=== PATIENT | female | born 1940 | race Caucasian/White ===

== ENCOUNTER 2017-07-28 17:19 | Inpatient (IN) | payer OTHER ==
[~2017-07-28] VITALS: Ht 160 cm; Wt 72.6 kg
--- NOTE | ~2017-07-28 | EKG ---
[place] [address] [facility] [place] [address] ELECTROCARDIOGRAM REPORT Name: TERE SILVA Room #: 170-3 ADM IN M.R.#: [id number] Admission: 07/28/17 Attend Phys: Rocky Cabrera MD Discharge: Date of : 40 Report #: [id number] THIS REPORT FOR: //name// [facility] ED Test Date: 2017-07-28 Test Time: 18:08:21 Pat Name: TERE SILVA Department: Room: 170 Gender: F Environmental Compliance Specialist: shan : 1940 Requested By: Marcela Berrios Order Number: [id number] MD: Mehdi Ramey Measurements Intervals [place] Rate: 79 P: DE: QRS: -51 QRSD: 152 T: 99 QT: 416 QTc: 477 Interpretive Statements Sinus rhythm with first-degree AV block Left bundle branch block No previous ECG available for comparison Electronically Signed On 07-29-2017 8:01:17 FOOD PRODUCT INSPECTOR by Mehdi Ramey [email or web address] <ELECTRONICALLY SIGNED> By: Mehdi Ramey MD, [facility] 07/29/17 0801 07 07 Mehdi Ramey MD, [facility] /EPI
--- NOTE | ~2017-07-28 | 2DMMODE ---
[facility] [address] [place] [address] 2 D/M-MODE ECHOCARDIOGRAM Name: TERE SILVA Room #: 170-3 ADM IN ..#: [id number] Admission: 07/28/17 Attend Phys: Rocky Cabrera, Discharge: Date of : 40 Date of Service: 07/29/17 1011 Report #: [id number] THIS REPORT FOR: //name// APPROVED REPORT Study performed: 07/29/2017 08:23:04 EXAM: Comprehensive 2D, Doppler, and color-flow Echocardiogram Patient Location: ER Room #: 3 Status: routine BSA: 1.66 HR: 89 bpm BP: 147/75 mmHg Other Information Study Quality: Adequate Indications Congestive Heart Failure Diabetes Hypertension/HDD 2D Dimensions RVDd: 32.84 mm LVEF(%): 29.83 (>50%) IVSd: 10.26 (7-11mm) LVOT Diam: 19.68 (18-24mm) LVDd: 53.58 mm PWd: 10.82 (7-11mm) Ascending Ao: 26.63 (22-36mm) LVDs: 46.01 (25-40mm) Aortic Root: 26.07 mm IVC: 22.00 mm Sanchez's LVEF: 29.83 % Volumes Left Atrial Volume (Systole) Single Plane 4CH: 41.98 mL Single Plane 2CH: 39.76 mL LA ESV Index: 31.00 mL/m2 Aortic Valve AoV Peak Cristiano.: 1.28 m/s AO Peak Gr.: 6.54 mmHg LVOT Max P.58 mmHg LVOT Max V: 0.95 m/s GERONIMO Vmax: 2.25 cm2 Mitral Valve E/A Ratio: 0.8 [facility] [address] [place] [address] 2 D/M-MODE ECHOCARDIOGRAM Name: SHIRATEREDandy PAULSON Room #: [facility]3 ADM IN M.R.#: [id number] Admission: 07/28/17 Attend Phys: Rocky Cabrera, Discharge: Date of : 40 Date of Service: 07/29/17 1011 Report #: [id number] MV Decel. Time: 174.00 ms MV E Max Cristiano.: 0.97 m/s MV A Cristiano.: 1.27 m/s MV PHT: 50.46 ms IVRT: 152.25 ms Pulmonary Valve PV Peak Cristiano.: 1.05 m/s PV Peak Gr.: 4.39 mmHg TX End Vmax: 2.03 m/s Pulmonary Vein P Vein S: 0.55 m/s P Vein A: 0.25 m/s P Vein D: 0.45 m/s P Vein A Dur.: 101.5 msec P Vein S/D Ratio: 1.22 Tricuspid Valve TR Peak Cristiano.: 3.94 m/s TR Peak Gr.: 62.03 mmHg PA Pressure: 72.00 mmHg Left Ventricle The left ventricle is normal size. There is global hypokinesis of the left ventricle. There is normal left ventricular wall thickness. Left ventricular ejection fraction is moderate to severely decreased. LVEF is 25-30%. Grade I - abnormal relaxation pattern. Right Ventricle The right ventricle is normal size. The right ventricular systolic function is normal. Atria The left atrium size is normal. Right atrium is at the upper limits of normal. Aortic Valve The aortic valve is normal in structure. No aortic regurgitation is present. There is no aortic valvular stenosis. Mitral Valve The mitral valve is normal in structure. Trace to mild mitral regurgitation.. No evidence of mitral valve stenosis. Tricuspid Valve The tricuspid valve is normal in structure. There is mild tricuspid regurgitation. Estimated PAP 72 mmHg. There [place] [address] 2 D/M-MODE ECHOCARDIOGRAM Name: TERE SILVA Room #: [address] [place] [address] [facility]#: [id number] Admission: 07/28/17 Attend Phys: Rocky Cabrera, Discharge: Date of : 40 Date of Service: 07/29/17 1011 Report #: [id number] Pulmonic Valve The pulmonary valve is normal in structure. Mild pulmonic regurgitation. Great Vessels The aortic root is normal in size. IVC is dilated and collapses <50% with inspiration. Pericardium There is no pericardial effusion. <Conclusion> The left ventricle is normal size. There is global hypokinesis of the left ventricle. LVEF is 25-30%. The aortic valve is normal in structure. The mitral valve is normal in structure. Trace to mild mitral regurgitation.. The tricuspid valve is normal in structure. There is mild tricuspid regurgitation. Estimated PAP 72 mmHg. There is severe pulmonary hypertension. The pulmonary valve is normal in structure. Mild pulmonic regurgitation. There is no pericardial effusion. <ELECTRONICALLY SIGNED> By: Forrest Bryson MD 07/29/17 1011 1011 1011 Forrest Bryson MD /INF
--- NOTE | ~2017-07-28 | HC ---
[facility] [place] [address] CONSULTATION Name: TERE SILVA Room #: 402-P ADM IN M.R.#: [id number] Admission: 07/28/17 Attend Phys: Rocky Cabrera MD Discharge: Date of : 40 Report #: [id number] THIS REPORT FOR: //name// CC: [facility] physician/PCP Rocky Cabrera DATE OF SERVICE: 07/31/2017 PRIMARY CARE PHYSICIAN: Unknown. REFERRAL PHYSICIAN: Dr. Cabrera. REASON FOR REFERRAL: Pulmonary nodules. HISTORY OF PRESENT ILLNESS: The patient is a 76-year-old white female who was admitted on 07/28/2017 for uncontrolled hypertension. In the process, the patient had a CT chest, which shows small lung nodules. A pulmonary consultation was requested. The patient states that she has never smoked in her life. 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 She understands that some of the beauticians in the industry do develop lung nodules. Since admission, she feels well. She has been treated for heart failure along with blood pressure control. She is felt to have hypertensive cardiomyopathy with ejection fraction of approximately 30%. Otherwise, denies any fever, night sweats or chills, chest pain, productive cough. CT chest performed on 07/28/2017 shows multiple subpleural small nodules in the right lower lobe, left lower lobe with some evidence of pleural thickening. No other abnormalities were noted. PAST MEDICAL HISTORY: Notable for hypertension, hypothyroidism, early onset diabetes. 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 ALLERGIES: None to medications. HOME MEDICATIONS: Include Lipitor, Darvon. FAMILY HISTORY: Noncontributory. [facility] [place] [address] CONSULTATION Name: TERE SILVA Room #: 402-P [facility] IN .R.#: [id number] Admission: 07/28/17 Attend Phys: Rocky Cabrera MD Discharge: Date of : 40 Report #: [id number] SOCIAL HISTORY: She has never smoked, does not drink. She is retired. 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 REVIEW OF SYSTEMS: As mentioned above, otherwise 10-point system review negative. PHYSICAL EXAMINATION: GENERAL: She is awake, alert, in no apparent distress. VITAL SIGNS: Temperature is 98.6 degrees Fahrenheit, pulse is 67, respiratory rate is 16, blood pressure 150/77 mmHg, saturation is 99%. HEENT: Normocephalic, atraumatic. NECK: Supple, without any lymphadenopathy or thyromegaly. CHEST: Breath sounds are good bilaterally, without any rales or wheezes. CARDIOVASCULAR: Normal S1, S2. There are no murmurs or gallop. There is no JVD. There is no carotid bruit. Pulses are 2+/4+ bilaterally. ABDOMEN: Soft, nontender, no organomegaly or masses felt. GENITOURINARY: Deferred. RECTAL: Deferred. EXTREMITIES: There is no edema, cyanosis or clubbing. LABORATORY DATA: CT chest as mentioned above. CT abdomen and pelvis revealed mild sigmoid diverticulosis, mild left-sided hydronephrosis and hydroureter without obstruction. Echocardiogram showed ejection fraction 25-30%, global hypokinesis, pulmonary artery pressure measuring 72 mmHg, the aortic and mitral valve was unremarkable. Sodium 126, potassium 3.6, chloride 90, CO2 is 30, BUN is 12, creatinine is normal. The liver enzymes are normal. WBC 7500, hemoglobin is 13.2, platelets are normal. IMPRESSION: 1. Small multiple lung nodules in this 76-year-old white female. CT chest shows supple nodules, particularly in the right lower lobe and lesser degree in the left lower lobe with mild pleural thickening. Etiology likely related to granulomatous process, possibly related to occupational exposure. Note, the patient has never smoked. Please see comments below. 2. Hypertensive urgency. 3. Cardiomyopathy, felt to be hypertensive. 4. Elevated pulmonary artery pressure, most likely related to cardiomyopathy. 5. Hyponatremia. I do not suspect this is related to pulmonary process, workup ongoing per primary team. 5. Hypothyroidism. RECOMMENDATION AND DISCUSSION: The small pulmonary nodule seen on CT chest will require followup. I do not think it is actively causing current problems. She [address] [place] [address] CONSULTATION Name: TERE SILVA Room #: 402-P ADM IN M.R.#: [id number] Admission: 07/28/17 Attend Phys: Rocky Cabrera MD Discharge: Date of : 40 Report #: [id number] would need a followup CT chest in about 4-6 months to show stability. This may be related to occupational exposure, though it is uncertain at this time. In terms of elevated pulmonary artery pressures, it is likely related to cardiomyopathy. She would need followup measurements of pulmonary artery pressures. If the pulmonary artery pressure worsens, she also would benefit from outpatient followup. She may benefit from outpatient followup regarding her pulmonary hypertension. She may need a formal workup. Thank you for this consultation. <ELECTRONICALLY SIGNED> By: Tonny Hernandez MD 08/01/17 1345 1413 0113 Tonny Hernandez MD /nt
[2017-07-28 17:20] VITALS: BP 184/111
[2017-07-28 18:24] LABS: ABSOLUTE NEUTROPHILS 8.7 thou/uL (1.4-8.2); BASOPHILS 0.6 % (0.0-2.0); EOSINOPHILS 2.7 % (0.0-3.0); HEMATOCRIT 36.1 % (37.0-47.0); HEMOGLOBIN 12.1 gm/dL (12.0-15.0); LYMPHOCYTES 7.6 % (24.0-44.0); MCH 30.3 pg (26.0-34.0); MCHC 33.6 g/dL (28.0-37.0); MCV 90.1 fL (80.0-100.0); MONOCYTES 10.3 % (1.0-8.0); PLATELET COUNT 162 thou/uL (150-400); POLYS 78.8 % (36.0-66.0); RBC 4.01 mil/uL (4.20-5.00); RDW 13.5 % (10.5-14.5)
[2017-07-28 18:29] LABS: ANION GAP 7 mmol/L (7-16); BUN 12 mg/dL (7-18); CALCIUM 8.2 mg/dL (8.5-10.1); CHLORIDE 92 mmol/L (98-107); CO2 26 mmol/L (21-32); CREATININE 0.9 mg/dL (0.6-1.0); GLUCOSE 165 mg/dL (74-106); POTASSIUM 4.4 mmol/L (3.5-5.1); SODIUM 125 mmol/L (136-145)
[2017-07-28 18:37] LABS: ALBUMIN 2.7 g/dL (3.4-5.0); SGOT 31 U/L (15-37); SGPT 34 U/L (30-65); TOTAL BILIRUBIN 0.7 mg/dL (<0.1-1.0); TOTAL PROTEIN 5.5 g/dL (6.4-8.2); TROPONIN-I < 0.04 ng/mL (<0.06)
[2017-07-28 19:17] LABS: URINE BILIRUBIN NEGATIVE (Negative); URINE BLOOD TRACE (Negative); URINE CLARITY CLEAR; URINE COLOR YELLOW; URINE GLUCOSE-RANDOM* NEGATIVE (Negative); URINE KETONES NEGATIVE (Negative); URINE LEUKOCYTES NEGATIVE (Negative); URINE NITRITE NEGATIVE (Negative); URINE PROTEIN (DIPSTICK) TRACE (Negative); URINE SPECIFIC GRAVITY <= 1.005 (1.005-1.035); URINE UROBILINOGEN 0.2 E.U./dl (0.2-1.0)
[2017-07-28 19:52] VITALS: BP 169/94
[2017-07-28 23:59] VITALS: BP 164/90
[2017-07-29 05:14] LABS: ANION GAP 7 mmol/L (7-16); BUN 8 mg/dL (7-18); CALCIUM 8.4 mg/dL (8.5-10.1); CHLORIDE 92 mmol/L (98-107); CHOLESTEROL 111 mg/dL (<200); CO2 27 mmol/L (21-32); CREATININE 0.8 mg/dL (0.6-1.0); GLUCOSE 135 mg/dL (74-106); HDL CHOLESTEROL 57 mg/dL (>40); LDL CHOLESTEROL 45 mg/dL (<100); SODIUM 126 mmol/L (136-145); TC:HDL 1.9 Ratio (Not establshd); TRIGLYCERIDE 46 mg/dL (<150); VLDL 9 mg/dL (<40)
[2017-07-29 05:26] LABS: SERUM ASSESSMENT Clear
[2017-07-29 13:40] VITALS: BP 154/78
[2017-07-29 14:01] VITALS: BP 162/85
[2017-07-29 14:25] VITALS: BP 159/90
[2017-07-29 15:06] LABS: GLYCOHEMOGLOBIN (HGB A1C) 6.4 % (4.8-5.6)
[2017-07-29] MEDS ORDERED: LIPITOR 20 MG T20 M1 PO (15:25)
[2017-07-29] MEDS ORDERED: DIOVAN 80 MG TA80 M1 PO (15:26)
[2017-07-29 20:00] VITALS: BP 134/85
[2017-07-30 04:00] VITALS: BP 155/93
[2017-07-30 06:52] LABS: HEMOGLOBIN 13.2 gm/dL (12.0-15.0); MCH 29.8 pg (26.0-34.0); MCV 90.3 fL (80.0-100.0); PLATELET COUNT 157 thou/uL (150-400); RBC 4.44 mil/uL (4.20-5.00); RDW 13.7 % (10.5-14.5); WBC 7.5 thou/uL (4.0-11.0)
[2017-07-30 07:02] LABS: CALCIUM 8.6 mg/dL (8.5-10.1); CREATININE 0.8 mg/dL (0.6-1.0); POTASSIUM 3.9 mmol/L (3.5-5.1)
[2017-07-30 07:40] LABS: ABSOLUTE NEUTROPHILS 5.7 thou/uL (1.4-8.2)
[2017-07-30 08:38] VITALS: BP 178/97
[2017-07-30 16:25] VITALS: BP 152/94
[2017-07-30 20:00] VITALS: BP 124/62
[2017-07-31 03:55] LABS: CALCIUM 7.9 mg/dL (8.5-10.1); CREATININE 0.8 mg/dL (0.6-1.0); POTASSIUM 3.6 mmol/L (3.5-5.1)
[2017-07-31 04:00] VITALS: BP 146/82
[2017-07-31 07:33] VITALS: BP 149/77
[2017-07-31 17:00] VITALS: BP 118/78
[2017-07-31 19:44] VITALS: BP 117/62
[2017-08-01 04:00] VITALS: BP 128/83
[2017-08-01 04:47] LABS: CREATININE 0.7 mg/dL (0.6-1.0); POTASSIUM 4.1 mmol/L (3.5-5.1)
[2017-08-01] MEDS ORDERED: COZAAR100 MG PO (08:34)
[2017-08-01] MEDS ORDERED: KLOR-CON M2020 MEQ PO (08:34)
[2017-08-01] MEDS ORDERED: CARVEDILOL25 MG PO (08:34)
[2017-08-01] MEDS ORDERED: LASIX 20 MG TAB20 MG PO (08:34)
[2017-08-01 08:49] VITALS: BP 136/75
[2017-08-01 10:34] VITALS: BP 136/75
[2017-08-01 18:01] VITALS: BP 111/74
== END 2017-08-01 18:10 | disposition home health service (06) | DRG 291 ==
LOC: ER 17:19 → EROBS 19:30 → 4N 19:30
PROVIDERS: Hospitalist; Internal Medicine; Nurse Practitioner Acute Care; Nurse Practitioner Family
DX: I11.0 Hypertensive heart disease with heart failure (principal); E43 Unspecified severe protein-calorie malnutrition; E87.1 Hypo-osmolality and hyponatremia; R18.8 Other ascites; I50.23 Acute on chronic systolic (congestive) heart failure; I42.9 Cardiomyopathy, unspecified; I16.0 Hypertensive urgency; R91.1 Solitary pulmonary nodule; E03.9 Hypothyroidism, unspecified; E78.5 Hyperlipidemia, unspecified; E11.9 Type 2 diabetes mellitus without complications; H54.8 Legal blindness, as defined in USA; E78.00 Pure hypercholesterolemia, unspecified; Z79.899 Other long term (current) drug therapy; Z90.49 Acquired absence of other specified parts of digestive tract
CPT/HCPCS: 10091

== ENCOUNTER 2017-08-16 12:14 | Emergency (ER) | payer OTHER ==
[~2017-08-16] VITALS: Ht 162.6 cm; Wt 68.0 kg
--- NOTE | ~2017-08-16 | EKG ---
[facility] [place] [address] ELECTROCARDIOGRAM REPORT Name: TERE SILVA [facility] [id number] Admission: 08/16/17 Attend Phys: Discharge: Date of : 40 Report #: [id number] THIS REPORT FOR: //name// [facility] ED Test Date: 2017-08-16 Test Time: 12:53:30 Pat Name: TERE SILVA Department: Room: Gender: F Weaver Hand Loom: MARQUITA : 1940 Requested By: Marcela Berrios Order Number: [id number] MD: Mehdi Ramey Measurements Intervals [place] Rate: 72 P: 73 ID: [id number] QRS: -37 QRSD: 159 T: 107 QT: 445 QTc: 488 Interpretive Statements Sinus rhythm Prolonged ID interval Probable left atrial enlargement Left bundle branch block Compared to ECG 07/28/2017 18:08:21 First degree AV block now present Electronically Signed On 08-16-2017 17:08:43 CDT by Mehdi Ramey [email or web address] <ELECTRONICALLY SIGNED> By: Mehdi Ramey MD, [facility] 08/16/17 1708 1253 1253 Mehdi Ramey MD, [facility] /EPI
[~2017-08-16 12:14] MED LIST: CARVEDILOL25 MG PO; COZAAR100 MG PO; DIOVAN 80 MG TA80 M1 PO; KLOR-CON M2020 MEQ PO; LASIX 20 MG TAB20 MG PO; LIPITOR 20 MG T20 M1 PO
[2017-08-16 13:00] LABS: URINE BILIRUBIN NEGATIVE (Negative); URINE BLOOD NEGATIVE (Negative); URINE CLARITY CLEAR; URINE COLOR YELLOW; URINE GLUCOSE-RANDOM* NEGATIVE (Negative); URINE KETONES NEGATIVE (Negative); URINE LEUKOCYTES NEGATIVE (Negative); URINE NITRITE NEGATIVE (Negative); URINE PROTEIN (DIPSTICK) NEGATIVE (Negative); URINE SPECIFIC GRAVITY <= 1.005 (1.005-1.035); URINE UROBILINOGEN 0.2 E.U./dl (0.2-1.0)
[2017-08-16 13:31] LABS: HEMATOCRIT 41.4 % (37.0-47.0); MCHC 33.8 g/dL (28.0-37.0); MCV 88.9 fL (80.0-100.0); PLATELET COUNT 231 thou/uL (150-400); RBC 4.66 mil/uL (4.20-5.00); RDW 13.5 % (10.5-14.5); WBC 7.2 thou/uL (4.0-11.0)
[2017-08-16 13:42] LABS: ANION GAP 8 mmol/L (7-16); BUN 22 mg/dL (7-18); CALCIUM 9.7 mg/dL (8.5-10.1); CHLORIDE 90 mmol/L (98-107); CO2 30 mmol/L (21-32); CREATININE 1.1 mg/dL (0.6-1.0); GLUCOSE 155 mg/dL (74-106); POTASSIUM 4.1 mmol/L (3.5-5.1); SODIUM 128 mmol/L (136-145)
[2017-08-16 13:49] LABS: ALBUMIN 3.6 g/dL (3.4-5.0); SGOT 22 U/L (15-37); SGPT 24 U/L (30-65); TOTAL PROTEIN 6.8 g/dL (6.4-8.2); TROPONIN-I < 0.04 ng/mL (<0.06)
[2017-08-16 13:54] LABS: ABSOLUTE NEUTROPHILS 5.3 thou/uL (1.4-8.2); ATYPICAL LYMPHS 3 %; PLATELET ESTIMATE NORMAL
== END 2017-08-16 17:12 | disposition home or self-care (01) ==
LOC: ER 12:14
PROVIDERS: Nurse Practitioner Family
DX: R41.82 Altered mental status, unspecified (principal); E87.1 Hypo-osmolality and hyponatremia; I10 Essential (primary) hypertension; E03.9 Hypothyroidism, unspecified; E78.5 Hyperlipidemia, unspecified; Z90.49 Acquired absence of other specified parts of digestive tract

== ENCOUNTER 2019-03-21 22:03 | Inpatient (IN) | payer OTHER ==
[~2019-03-21] VITALS: Ht 162.6 cm; Wt 68.0 kg
[2019-03-21 22:09] VITALS: BP 131/55
[2019-03-21] MEDS ORDERED: KLOR-CON M2020 MEQ PO (22:32)
[2019-03-21] MEDS ORDERED: METFORMIN HCL500 M3 PO (22:33)
[2019-03-21] MEDS ORDERED: MAGNESIUM400 M1 PO (22:33)
[2019-03-21] MEDS ORDERED: LASIX 40 MG TAB40 MG PO (22:34)
[2019-03-21] MEDS ORDERED: COZAAR 25 MG TA25 M2 PO (22:34)
[2019-03-21] MEDS ORDERED: LEVO-T50 MCG PO (22:34)
[2019-03-21] MEDS ORDERED: VITAMIN D32000 UNIT PO (22:35)
[2019-03-21] MEDS ORDERED: CARVEDILOL25 MG PO (22:35)
[2019-03-21] MEDS ORDERED: LIPITOR20 MG PO (22:35)
[2019-03-21 23:37] LABS: ABSOLUTE NEUTROPHILS 18.8 thou/uL (1.4-8.2); BASOPHILS 0.3 % (0.0-2.0); EOSINOPHILS 0.7 % (0.0-3.0); HEMATOCRIT 38.9 % (37.0-47.0); HEMOGLOBIN 12.6 gm/dL (12.0-15.0); LYMPHOCYTES 6.7 % (24.0-44.0); MCH 31.1 pg (26.0-34.0); MCHC 32.5 g/dL (28.0-37.0); MCV 95.9 fL (80.0-100.0); MONOCYTES 8.4 % (1.0-8.0); PLATELET COUNT 211 thou/uL (150-400); POLYS 83.9 % (36.0-66.0); RBC 4.06 mil/uL (4.20-5.00); WBC 22.4 thou/uL (4.0-11.0)
[2019-03-21 23:41] LABS: CALCIUM 9.1 mg/dL (8.5-10.1); CREATININE 0.9 mg/dL (0.6-1.0)
[2019-03-21 23:44] LABS: APTT 23.6 Seconds (24.5-32.8); INR 1.1; PROTIME 11.1 Seconds (9.3-11.4)
[2019-03-21 23:47] LABS: ALBUMIN 2.9 g/dL (3.4-5.0); TOTAL BILIRUBIN 0.4 mg/dL (<0.1-1.0)
[2019-03-22 00:13] LABS: URINE BILIRUBIN NEGATIVE (Negative); URINE BLOOD NEGATIVE (Negative); URINE CLARITY CLEAR; URINE COLOR YELLOW; URINE GLUCOSE-RANDOM* NEGATIVE (Negative); URINE KETONES NEGATIVE (Negative); URINE LEUKOCYTES-REFLEX TRACE (Negative); URINE NITRITE-REFLEX NEGATIVE (Negative); URINE PROTEIN (DIPSTICK) NEGATIVE (Negative); URINE UROBILINOGEN 0.2 E.U./dl (0.2-1.0)
[2019-03-22 02:26] VITALS: BP 97/68
[2019-03-22 02:37] VITALS: BP 112/48
--- NOTE | 2019-03-22 05:18 | NUR ---
ADMISSION COMPLTED. PT IS ALERT AND ORIENTED X 4. VERY PLEASANT. L HIP FRACTURE. SHE REPORTS A 3/10 PAIN WHEN AT REST.PT DENIES NEED FOR PAIN MEDS. SHE IS NPO. IVF INFUSING VIA L HAND. R FOOT WOUND. PICTURE TO BE TAKEN.VSS.CALL LIGHT WITHIN REACH.
[2019-03-22 08:30] VITALS: BP 156/73
--- NOTE | 2019-03-22 08:47 | EKG ---
[place] [address] [address] [facility] [place] [address] ELECTROCARDIOGRAM REPORT Name: TERE SILVA Room #: 434-P ADM IN M.R.#: [id number] Admission: 03/22/19 Attend Phys: Rocky Cabrera MD Discharge: Date of : 40 Report #: [id number] THIS REPORT FOR: //name// [facility] ED Test Date: 2019-03-21 Test Time: 23:24:07 Pat Name: TERE SILVA Department: Room: 434 Gender: F [employer] Nurse: HODA : 1940 Requested By: Daniele Alicia Order Number: [id number] MD: Mehdi Ramey Measurements Intervals [place] Rate: 61 P: 61 NE: 216 QRS: -23 QRSD: 156 T: 63 QT: 464 QTc: 468 Interpretive Statements Sinus rhythm Borderline prolonged NE interval Left bundle branch block Compared to ECG 08/16/2017 12:53:30 No significant changes Electronically Signed On 03-22-2019 8:47:15 CDT by Mehdi Ramey [email or web address] <ELECTRONICALLY SIGNED> By: Mehdi Ramey MD, [facility] 03/22/19 0847 2324 2324 Mehdi Ramey MD, [facility] /EPI
--- NOTE | 2019-03-22 11:23 | 2DMMODE ---
[facility] [address] [place] [address] 2 D/M-MODE ECHOCARDIOGRAM Name: TERE SILVA Room #: 434-P ADM IN ..#: [id number] Admission: 03/22/19 Attend Phys: Preston Sow MD Discharge: Date of : 40 Report #: [id number] THIS REPORT FOR: //name// APPROVED REPORT Study performed: 03/22/2019 09:46:40 EXAM: Comprehensive 2D, Doppler, and color-flow Echocardiogram Patient Location: Bedside Room #: 434 Status: routine BSA: 1.73 HR: 67 bpm BP: 156/73 mmHg Rhythm: Irregular Other Information Study Quality: Good Indications Cardiomyopathy, Pre-Op hip. 2D Dimensions RVDd: 37.96 mm IVSd: 10.82 (7-11mm) LVOT Diam: 18.72 (18-24mm) LVDd: 49.85 mm PWd: 8.41 (7-11mm) Ascending Ao: 29.58 (22-36mm) LVDs: 42.76 (25-40mm) Aortic Root: 27.94 mm Volumes Left Atrial Volume (Systole) Single Plane 4CH: 30.48 mL Single Plane 2CH: 31.35 mL LA ESV Index: 23.00 mL/m2 Aortic Valve AoV Peak Cristiano.: 1.52 m/s AO Peak Gr.: 9.30 mmHg LVOT Max P.77 mmHg LVOT Max V: 1.20 m/s GERONIMO Vmax: 2.17 cm2 Mitral Valve E/A Ratio: 92.0 MV Decel. Time: 173.59 ms MV E Max Cristiano.: 0.92 m/s [facility] [address] [place] [address] 2 D/M-MODE ECHOCARDIOGRAM Name: TERE SILVA Room #: 434-P [facility] IN [facility]#: [id number] Admission: 03/22/19 Attend Phys: Preston Sow MD Discharge: Date of : 40 Report #: [id number] A Cristiano.: 0.01 m/s MV PHT: 50.34 ms IVRT: 129.18 ms Pulmonary Valve PV Peak Cristiano.: 1.44 m/s PV Peak Gr.: 8.25 mmHg Pulmonary Vein P Vein S: 0.48 m/s P Vein A: 0.32 m/s P Vein D: 0.30 m/s P Vein A Dur.: 101.5 msec P Vein S/D Ratio: 1.60 Tricuspid Valve RAP Estimate: 5.00 mmHg Left Ventricle The left ventricle is normal size. There is global hypokinesis of the left ventricle. There is normal left ventricular wall thickness. Left ventricular systolic function is moderate to severely decreased. LVEF is 30-35%. Mild diastolic dysfunction is present (impaired relaxation pattern). Right Ventricle The right ventricle is normal size. The right ventricular systolic function is normal. Atria The left atrium size is normal. The right atrium size is normal. Aortic Valve The aortic valve is normal in structure. Trace aortic regurgitation. There is no aortic valvular stenosis. Mitral Valve Mild mitral annular calcification Mild mitral regurgitation. Tricuspid Valve The tricuspid valve is normal in structure. Trace tricuspid regurgitation. Unable to assess PA pressure. Pulmonic Valve Pulmonic valve is not well visualized. Mild pulmonic regurgitation. [facility] [address] [place] [address] 2 D/M-MODE ECHOCARDIOGRAM Name: TERE SILVA Room #: 434-P [facility] IN .R.#: [id number] Admission: 03/22/19 Attend Phys: Preston Sow MD Discharge: Date of : 40 Report #: [id number] Great Vessels The aortic root is normal in size. The ascending aorta is normal in size. IVC is normal in size and collapses >50% with inspiration. Pericardium There is no pericardial effusion. <Conclusion> Left ventricular systolic function is moderate to severely decreased. There is global hypokinesis of the left ventricle. LVEF is 30-35%. Mild diastolic dysfunction The aortic valve is normal in structure. Trace aortic regurgitation, no stenosis. Mild mitral annular calcification. Mild mitral regurgitation. Unable to assess pulmonary artery pressure. There is no pericardial effusion. <ELECTRONICALLY SIGNED> By: Mehdi Ramey MD, [facility] 03/22/19 1123 1123 112 Mehdi Ramey MD, [facility] /INF
--- NOTE | 2019-03-22 13:22 | NUR ---
Nutrition: Assessed due to consult received for chronic R foot wounds. Admit L hip fracture. Hx: HTN, blindness, hypothyroidism, pre DM. Typically wears a boot on R foot due to ankle issues. Was NPO this AM, able to eat for lunch. Met with pt and grandson to discuss recent nutrition hx, weight, and nutrition goals moving forward. Pt denies any wt loss. Is 150# currently; same weight per 08/16/17 weight in EMR. A1c 6.4% last yr (07/29/17), but on metformin XR BID. She reports a healthy appetite, no nutritional intake concerns at home. Drinks a low carb Boost drink or Premier protein drink 1-2x daily. RD focused on paul protein foods to prioritize at meals, saving side dishes for last. Pt agrees to vanilla Glucerna oral nutrition supplement daily. Low nutrition risk.
--- NOTE | 2019-03-22 17:10 | NUR ---
Assumed care of pt at 0700. Pt a&ox4. Pain on left hip controlled. Pt went to pre-op for surgery and was brought back to unit due to pulmonary hypertension. Cardiology consulted. Pt will have surgery tomorrow instead if cleared by cardiology. Consent signed and in chart. NPO after midnight. Call light within reach. Will continue to monitor.
[2019-03-22 17:54] VITALS: BP 135/69
[2019-03-22 20:02] VITALS: BP 133/71
[2019-03-23] VITALS (7 sets, daily range): BP systolic 100–149; BP diastolic 49–83
--- NOTE | 2019-03-23 04:17 | NUR ---
ASSUMED CARE OF PATIENT AT 2114. ASSESSMENT CHARTED. MEDICATION GIVEN PER EMAR. PT IS A&OX4, VSS, AND C/O PAIN EXACERBATED BY MOVEMENT OF HIP. PATIENT ON BEDREST AND CALLS OUT FOR ASSISTANCE WITH FX WESLEY. URINE OUTPUT ADEQUATE SCD'S IN PLACE. PATIENT IS UNABLE TO REPOSITION BECAUSE OF INTOLERABLE PAIN AT HIP. PRN PAIN MEDS GIVEN. PLAN IS FOR HIP SURGERY TOMORROW. FALL PRECAUTIONS IN PLACE. WILL CONTINUE TO MONITOR AND FOLLOW POC.
--- NOTE | 2019-03-23 10:41 | HC ---
[facility] [address] [place] [address] CONSULTATION Name: TERE SILVA Room #: 434-P ADM IN M.R.#: [id number] Admission: 03/22/19 Attend Phys: Preston Sow MD Discharge: Date of : 40 Report #: [id number] THIS REPORT FOR: //name// CC: Daniel Celestin FAM unknown Preston Sow CHIEF COMPLAINT: Left proximal femur fracture. HISTORY OF PRESENT ILLNESS: This very frail 78-year-old female is legally blind. She has limited ambulation potential. She states she does ambulate at home cautiously with the use of a cane or walker. She notes she has had recent left foot surgery by a local perfect binder feeder offbearer. She has been trying to protect the foot and has a firm shoe. This has caused some additional difficulty with ambulation and she had another fall last evening. X-rays here confirmed what appears to be a minimally or nondisplaced fracture in the intertrochanteric region of the left proximal femur. 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 At the time of my discussion, she does complain of left hip pain with limited range of motion. She denies other areas of significant discomfort. She states the left foot has been healing adequately, but continues in an outpatient dressing. She denies any other areas of significant injury aside from minor contusions and abrasions. We have had a lengthy discussion regarding these issues. I think she does have a fracture of the intertrochanteric region of the left femur and feel surgical stabilization with TFN nail would probably most appropriate. The patient agrees. We had tentatively tried to go ahead with surgery today; however, we have noted that she does have a significant history of previous cardiac disease, which has not been fully evaluated. She has an impaired ejection fraction and a possible history of previous SD and cardiac dysfunction. Given this, I have agreed with anesthesia that we should probably allow time for cardiac evaluation before proceeding with surgery. At this point, we may be able to proceed tomorrow if she does get cleared by Cardiology and if OR time is available, I think a TFN nail fixation for the left proximal femur fracture would be most appropriate. <ELECTRONICALLY SIGNED> By: Daniel Celestin MD 03/23/19 1041 1044 2318 Daniel Celestin MD /nt
--- NOTE | 2019-03-23 12:38 | NUR ---
WOUND CARE NOTE DM ulcer plantar surface ball of right foot, son at bs. [facility] laborer ammunition assembly DR JOSÉ MIGUEL RENNER has been treating ulcer w/ some oint, pt but and son cannot recall name, pt and son requesting laborer ammunition assembly to see in hosp or wound dr, will consult wound dr as laborer ammunition assembly not on staff, going to surgery this pm for repair of left hip fx, wound dressed w/ ns gauze, katlin , staff command and control officer informed, pt cooperative w/ care, see process intervention for wound details
--- NOTE | 2019-03-23 15:56 | NUR ---
PATIENT SEEN BY MEENAKSHI ALVAREZ NP WITH DR. OCASIO, FOR REHAB CONSULT. PATIENT SEEN PRIOR TO SURGERY AND IS ADAMANT THAT SHE WILL BE ABLE TO RETURN TO HER HOME AFTER SURGERY. OT/PT WILL SEE PATIENT AFTER SURGERY AND WILL GIVE DISCHARGE DISPOSITION RECOMMENDATION. WILL CONTINUE TO FOLLOW. THANK YOU FOR THIS REFERRAL.
--- NOTE | 2019-03-23 16:11 | NUR ---
INITIAL ASSESSMENT: Pt evaluated for d/c planning needs. Reviewed chart and spoke with nurse, pt grandson and his . Pt is alert and oriented and lives alone in house with her dog. Pt was independent with ADL's. Pt said she has walker, cane, w/c and crutches at home. Pt has had [facility] in the past. Pt had planned on returning home on d/c from hospital, but family agrees that she will need rehab placement on d/c. Pt has been evaluated by [facility]. Their second choice is [facility]. Faxed referral to [facility]. Will remain available to assist as needed.
[2019-03-24 03:49] VITALS: BP 139/67
--- NOTE | 2019-03-24 04:05 | NUR ---
ASSUMED CARE OF PATIENT AT APPROX. 2044. ASSESSMENT CHARTED. MEDICATIONS GIVEN PER JUL. PATIENT IS A&OX4 BUT IS DROWSY S/T SEDATION IN OR. DENIES PAIN AT THIS TIME. BP IS 117/68. PATIENT REFUSED HER INSULIN AND STATES SHE "PREFERS TO JUST TAKE METFORMIN". PATIENT IS STILL ON BEDREST POST SURGERY AND IS TO D/C TO REHAB. PATIENT CALLS OUT TO USE BEDPAN. SCD'S IN PLACE. FALL PRECAUTIONS IN PLACE. WILL CONTINUE TO MONITOR AND FOLLOW POC
[2019-03-24 08:13] VITALS: BP 147/74
[2019-03-24 10:28] LABS: HEMATOCRIT 30.3 % (37.0-47.0); MCH 31.9 pg (26.0-34.0); MCV 96.8 fL (80.0-100.0); RBC 3.13 mil/uL (4.20-5.00); RDW 12.9 % (10.5-14.5); WBC 11.8 thou/uL (4.0-11.0)
[2019-03-24 17:38] VITALS: BP 136/48
--- NOTE | 2019-03-24 19:30 | NUR ---
ASSUMED CARE OF PATIENT AT 0715, PATIENT ALERT AND ORIENTED X 3-4. PATIENT C/O PAIN WITH LEFT THIGH, RECEIVED HYDROCODONE X 2 THIS SHIFT. PATIENT WORKED WITH PT/OT UP TO THE CHAIR. MAX ASSIST TO GET BACK IN BED. RIGHT BOOT FOR RIGHT FOOT, AND NO WEIGHT ON LEFT LEG. LEGALLY BLIND IN RIGHT EYE AND PARTIAL SIGHT IN LEFT EYE. BLOOD USGRA MONITORING ORDERED BUT PATIENT REFUSED INSULIN, SHE TAKE METFORMIN BID. PATIENT HAS RIGHT HAND IV IN PLACE, IV FLUIDS D/C PER CARDIAC TEAM. DRESSING TO RIGHT FOOT C/D/I. LEFT HIP HAS DRY GUAZE DRESSING C/D/I. POST OP DAY 1/ DR HERNANDEZ PERFORMED SURGERY. WILL CONTINUE TO MONITOR.
[2019-03-24 21:05] VITALS: BP 117/62
[2019-03-25 03:05] LABS: GLYCOHEMOGLOBIN (HGB A1C) 6.3 % (4.8-5.6)
[2019-03-25 03:42] LABS: HEMATOCRIT 27.7 % (37.0-47.0); HEMOGLOBIN 9.1 gm/dL (12.0-15.0); MCH 31.9 pg (26.0-34.0); MCHC 32.9 g/dL (28.0-37.0); MCV 97.1 fL (80.0-100.0); RBC 2.85 mil/uL (4.20-5.00); WBC 10.2 thou/uL (4.0-11.0)
[2019-03-25 03:54] LABS: CALCIUM 8.8 mg/dL (8.5-10.1); CREATININE 0.8 mg/dL (0.6-1.0); POTASSIUM 4.8 mmol/L (3.5-5.1)
[2019-03-25 05:10] VITALS: BP 144/69
--- NOTE | 2019-03-25 05:28 | NUR ---
PT LYING IN BED. VOIDING PER BEDPAN. DENIES NEED FOR PAIN MEDICATION. RESTING COMFORTABLY. NO NEEDS VOICED. CALL LIGHT WITHIN REACH. WILL CONTINUE TO PROVIDE FREQUENT OBSERVATION.
[2019-03-25 08:44] VITALS: BP 159/70
--- NOTE | 2019-03-25 10:16 | NUR ---
Assumed care of pt at 0700. Pt a&ox4. Pain controlled. Dressing clean and intact. Dressing on right foot changed. Pt tolerated well. Pt states she is not a diabetic and states she does not like for her blood glucose levels to be checked before meals and at bedtime. Education provided. Pt agrees to have blood glucose checked 2 times a day. Partial weight bearing. Call light within reach. Fall precautions in place.
--- NOTE | 2019-03-25 11:17 | EKG ---
[place] [address] [facility] [place] [address] ELECTROCARDIOGRAM REPORT Name: TERE SILVA Room #: 434-P ADM IN M.R.#: [id number] Admission: 03/22/19 Attend Phys: Preston Sow MD Discharge: Date of : 40 Report #: [id number] THIS REPORT FOR: //name// [facility] Test Date: 2019-03-23 Test Time: 09:22:47 Pat Name: TERE SILVA Department: Room: 434 P Gender: F [employer] Teacher: Giorgio HALL : 1940 Requested By: Lona Sharpe Order Number: [id number] MD: Sidney Bell Measurements Intervals [place] Rate: 68 P: 76 WV: 207 QRS: -26 QRSD: 146 T: 77 QT: 439 QTc: 467 Interpretive Statements Sinus rhythm Multiple ventricular premature complexes Left bundle branch block Compared to ECG 03/21/2019 23:24:07 Ventricular premature complex(es) now present Electronically Signed On 03-25-2019 11:17:18 PICK UP OPERATOR by Sidney Bell [email or web address] <ELECTRONICALLY SIGNED> By: Sidney Bell MD 03/25/19 1117 1 1 Sidney Bell MD /EPI
[2019-03-25 17:11] VITALS: BP 146/76
[2019-03-25 19:10] VITALS: BP 122/54
--- NOTE | 2019-03-26 04:02 | NUR ---
PT LYING IN BED. VOIDING PER BEDPAN. LORTAB PROVIDING PAIN RELIEF. RESTING COMFORTABLY. NO NEEDS VOICED. CALL LIGHT WITHIN REACH. WILL CONTINUE TO PROVIDE FREQUENT OBSERVATION.
[2019-03-26 07:44] VITALS: BP 145/77
--- NOTE | 2019-03-26 07:52 | O ---
[facility] [place] [address] OPERATIVE REPORT Name: TERE SILVA Room #: 434-P [facility] IN M.R.#: [id number] Admission: 03/22/19 Attend Phys: Preston Sow MD Discharge: Date of : 40 Report #: [id number] THIS REPORT FOR: //name// CC: Daniel Celestin FAM unknown Preston Sow PREOPERATIVE DIAGNOSIS: Left proximal femur fracture. POSTOPERATIVE DIAGNOSIS: Left proximal femur fracture. PROCEDURE: Open reduction and internal fixation of left proximal femur fracture with antegrade TFN nail fixation device. SURGEON: Dr. Celestin. INDICATIONS: This frail 78-year-old female with severe visual disability has had recent lower extremity problems with previous foot surgery. She had difficulty with balance and tripped over something at home injuring the left hip. X-rays confirm a nondisplaced intertrochanteric fracture. She has rather marked pain and is unable to ambulate effectively. Given this, we have elected to go ahead with surgical repair. DESCRIPTION OF PROCEDURE: The patient was taken to the operating room where she was placed under general anesthesia. Prophylactic intravenous antibiotics were administered. She was positioned on the fracture table with gentle longitudinal traction and slight internal rotation. The left hip was visualized with C-arm and anatomic alignment was confirmed. The lateral aspect of the hip and thigh were meticulously prepped and draped. A skin incision was made just proximal to the greater trochanter and a guidewire advanced down the canal. The trochanter was opened with a small reamer. A Synthes TFN nail was inserted using the 11 mm diameter and a short nail system. This was advanced to an appropriate position. A lateral guidewire was then placed into the femoral neck and head region. Its position was checked with C-arm and found to be satisfactory in both the AP and lateral views. A 100 mm helical blade was inserted. This was advanced to a point about 10-15 mm below the subchondral bone at the humeral head. It seated nicely and appeared to be secure. The locking screw was tightened down proximally. A distal interlocked screw was placed under C-arm guidance. C-arm views revealed essentially anatomic alignment of the fracture and excellent position of the TFN device. The two small incisions were closed with 2-0 Monocryl and skin dewayne. A sterile dressing was applied. The patient was awakened and returned to recovery room in good condition. <ELECTRONICALLY SIGNED> By: Daniel Celestin MD 03/26/19 0752 [id number] 1316 Daniel Celestin MD /nt
--- NOTE | 2019-03-26 10:01 | NUR ---
Assumed care of pt at 0700. Pt a&ox4. Pain controlled with prn pain meds. Dressing dry, clean and intact. Room air. Good appetite. Possibility of discharging to 5N. Fall precautions in place. Will continue to monitor.
--- NOTE | 2019-03-26 12:38 | NUR ---
PATIENT SEEN BY DR. OCASIO THIS DATE AND SKILLED WAS RECOMMENDED D/C LOCATION FOR PATIENT DUE TO PATIENT'S LOW LEVEL OF FUNCTION AND THE POTENTIAL LONG REHAB PERIOD NEEDED PRIOR TO PATIENT BEING SAFE TO RETURN TO HOME. [employer]OREKEE[employer]INEER[employer] INFORMED. THANK YOU FOR THIS REFERRAL.
--- NOTE | 2019-03-26 13:44 | NUR ---
SPOKE WITH JOEY IN ADM AT [facility] THEY WILL NOT BE ABLE TO ACCEPT PT AT DC THEY FEEL PT IS PRETTY COMPLEX AND THEY ARE FULL. DP TO FOLLOW.
--- NOTE | 2019-03-26 16:34 | NUR ---
PT/FAMILY IS INTERESTED IN [facility]. ASKED DC [employer]PER[employer] TO FAX REFERRALS AND PREFERENCES ARE IN THAT ORDER.
[2019-03-26 16:52] VITALS: BP 114/59
--- NOTE | 2019-03-26 17:16 | NUR ---
FAXED REFERRAL TO [facility] RECEIVED CONFIRMATION AND WILL F/U IN THE MORNING WITH FACILITY. FAXED REFERRAL [facility] RECEIVED CONFIRMATION WILL F/U WITH FACILITY IN THE MORNING FAXED REFERRAL TO [facility] RECEIVED CONFIRMATIN WILL F/U WITH FACILITY IN THE AM.
[2019-03-26 19:35] VITALS: BP 143/60
--- NOTE | 2019-03-27 03:49 | NUR ---
ASSUMED CARE OF PATIENT AT 2129. ASSESSMENT CHARTED. ACCUCHECK REFUSED. METFORMIN GIVEN PER JUL. PATIENT C/O PAIN ON L LEG, RADIATING FROM HIP. PRN PAIN MED GIVEN. VSS, O2 SAT EXCELLENT AT 99% ON RA. PATIENT HAS BEEN USING BEDPAN TO VOID. URINE OUTPUT IS ADEQUATE. NO OTHER NEEDS VOICED THIS SHIFT. FALL PRECAUTIONS IN PLACE. WILL CONTINUE TO MONITOR AND FOLLOW POC.
--- NOTE | 2019-03-27 03:54 | NUR ---
WOUND CARE DONE AT APPROX. 0330. SITE CLEANSED AND PACKED WITH IODOFORM. COVERED WITH FOAM BANDAGE. NO C/O DISCOMFORT OR PAIN VOICED.
[2019-03-27 04:20] VITALS: BP 126/47
[2019-03-27 05:36] LABS: HEMATOCRIT 28.5 % (37.0-47.0); HEMOGLOBIN 9.6 gm/dL (12.0-15.0); MCH 32.4 pg (26.0-34.0); MCHC 33.5 g/dL (28.0-37.0); MCV 96.7 fL (80.0-100.0); RBC 2.95 mil/uL (4.20-5.00); RDW 13.1 % (10.5-14.5); WBC 9.5 thou/uL (4.0-11.0)
[2019-03-27 05:52] LABS: ALBUMIN 2.2 g/dL (3.4-5.0); CREATININE 0.9 mg/dL (0.6-1.0); MAGNESIUM 1.9 mg/dL (1.8-2.4); POTASSIUM 4.7 mmol/L (3.5-5.1); TOTAL PROTEIN 5.2 g/dL (6.4-8.2)
[2019-03-27 08:13] VITALS: BP 133/57
[2019-03-27 08:32] VITALS: BP 133/57
--- NOTE | 2019-03-27 10:02 | NUR ---
ASSUMED PT CARE APPROX. 0700. A&Ox4. Awaiting placement. PLEASANT AND CALM PT. RECEIVING PT AND IS RECEIVING PROPER PRE MEDICATION FOR AMBULATION. PT. CONTINUES TO REFUSE GLUCOSE MONITORING AND HAS BEEN APPROVED BY MD TO DC. PT AND MD AWARE OF METFORMIN CONTRAINDICATION. PT. WOULD LIKE TO GET UP AND SIT AT THE EDGE OF HER BED TODAY.
--- NOTE | 2019-03-27 13:17 | NUR ---
Following for d/c planning needs. Pt is medically ready for d/c today. Reviewed chart and spoke with nurse, pt, physician and pt's grandson. Pt has been accepted at [facility]. Pt and grandson are in agreement with plans to transfer to [facility] today. farm planner to make w/c van transport arrangements. No other needs identified.
--- NOTE | 2019-03-27 14:30 | NUR ---
PT DISCHARGING TODAY TO [facility] FAXED DC ORDERS/SUMMARY TO FACILITY SPOKE WITH CRISSY AND SHE ARRANGED TRANSPORTATION BY [facility] FOR [id number] TODAY. NOTIFIED PT'S GRANDSON (CURT) OF DC AND TIME OF TRANSPORT. UNIT NOTIFIED AND CHART COPY PER US. RN TO CALL REPORT TO [phone].
--- NOTE | 2019-03-27 15:32 | NUR ---
DISCHARGE REPORT GIVEN AT 1531 TO EDUARDO ESQUIVEL AT [facility]
--- NOTE | 2019-04-08 11:57 | HC ---
[facility] [place] [address] CONSULTATION Name: TERE SILVA Room #: 434-P [facility] IN .R.#: [id number] Admission: 03/22/19 Attend Phys: Preston Sow MD Discharge: 03/27/19 Date of : 40 Report #: [id number] THIS REPORT FOR: //name// CC: Daniel Celestin FAM unknown Preston Sow DATE OF SERVICE: 03/26/2019 HISTORY OF PRESENT ILLNESS: This is a 78-year-old female patient who was admitted to the hospital by ambulance. She had a fall and pain in her inner thigh and it was noted to have sustained a left hip fracture. Orthopedics was consulted and she has had an open reduction and internal fixation. She is noted to have a chronic ulceration to her right foot and I have been asked to see her with regard to wound care. The patient has some pain associated with the hip area, but not much with the foot. PAST MEDICAL HISTORY: Positive for history of hypertension. She is blind in her right eye. She has previous cholecystectomy, previous right ankle fracture, hypothyroidism, prediabetes, hyperlipidemia, and previous right foot incision and drainage. SOCIAL HISTORY: Negative for alcohol or tobacco use. FAMILY HISTORY: Positive for diabetes in both of her parents. CURRENT MEDICATIONS: Include Klor-Con, metformin, magnesium, Cozaar, Levo-T, Lasix, Coreg, Lipitor, vitamin D3. ALLERGIES: No known drug allergies. REVIEW OF SYSTEMS: CONSTITUTIONAL: The patient denies fever, chills or weight loss. NEUROLOGICAL: The patient denies focal weakness, numbness or tingling. EYES: The patient denies any new visual changes. She has blindness in her right eye. ENT: The patient denies earache, nasal drainage, sore throat. CARDIOVASCULAR: The patient denies chest pain, palpitations or diaphoresis. PULMONARY: The patient denies cough or shortness of breath. GASTROINTESTINAL: The patient denies nausea, vomiting, diarrhea or abdominal pain. ORTHOPEDIC: The patient complains of pain in her left thigh/hip. She is aware of the ulcer on her foot. Other systems in a 14-point review of systems are negative. PHYSICAL EXAMINATION: [facility] [address] [place] [address] CONSULTATION Name: TERE SILVA Room #: 434-P [facility]#: [id number] Admission: 03/22/19 Attend Phys: Preston Sow MD Discharge: 03/27/19 Date of : 40 Report #: [id number] VITAL SIGNS: Include temperature 37.1, pulse 66, respiratory rate 17 and blood pressure 130/75. GENERAL: This is a chronically ill-appearing female patient who appears to be in minimal distress. HEENT: Head normocephalic. Nose and throat are clear. NECK: Supple. LUNGS: Clear. HEART: Regular rhythm. ABDOMEN: Soft. Bowel sounds present. EXTREMITIES: Demonstrate a surgical dressing in place on the left lower extremity. She is noted to have what appears to be a diabetic neuropathic ulcer on the plantar aspect of the right first MTP. No deep structures were exposed. A small amount of callus is seen with a little bit of tunneling. NEUROLOGIC: The patient is alert, does move all 4 extremities. She can answer questions. LABORATORY DATA: Sodium 133, potassium 4.8, chloride 101, CO2 of 30, BUN 16, creatinine 0.8, albumin is 2.9. White blood cell count 10.2 with hemoglobin 9.1. CLINICAL IMPRESSION: 1. Left femur fracture, status post open reduction and internal fixation. 2. Diabetic neuropathic ulcer, right first MTP plantar. 3. Blindness, right eye. 4. Hypertension. 5. Hypothyroidism. 6. Type 2 diabetes mellitus. RECOMMENDATIONS: At this point in time, we will recommend packing of the right first MTP with quarter inch iodoform gauze. She will need diabetic shoes upon discharge. She will need aggressive nutritional support, continuation of current medications. PT, OT when able. I appreciate being asked to see her in consultation. <ELECTRONICALLY SIGNED> By: Damian Garcia MD 04/08/19 1157 10 2247 Damian Garcia MD /nt
== END 2019-03-27 16:02 | DRG 481 ==
LOC: ER 22:03 → 4S 03-22 01:13 → EROBS 03-22 01:13 → 4S 03-22 02:42
PROVIDERS: Emergency Medicine; Internal Medicine; Nurse Practitioner Family; ADMIT Hospitalist
PROC: 0QS704Z Reposition Left Upper Femur with Internal Fixation Device, Open Approach (ICD-10-PCS; principal; 2019-03-26)
DX: S72.142A Displaced intertrochanteric fracture of left femur, initial encounter for closed fracture (principal); I50.20 Unspecified systolic (congestive) heart failure; E46 Unspecified protein-calorie malnutrition; I43 Cardiomyopathy in diseases classified elsewhere; E03.9 Hypothyroidism, unspecified; E78.5 Hyperlipidemia, unspecified; H54.8 Legal blindness, as defined in USA; M16.0 Bilateral primary osteoarthritis of hip; D72.829 Elevated white blood cell count, unspecified; E78.00 Pure hypercholesterolemia, unspecified; I08.1 Rheumatic disorders of both mitral and tricuspid valves; I44.7 Left bundle-branch block, unspecified; M19.90 Unspecified osteoarthritis, unspecified site; Z60.2 Problems related to living alone; I27.20 Pulmonary hypertension, unspecified; I11.0 Hypertensive heart disease with heart failure; D50.0 Iron deficiency anemia secondary to blood loss (chronic); L97.519 Non-pressure chronic ulcer of other part of right foot with unspecified severity; E11.621 Type 2 diabetes mellitus with foot ulcer; E11.40 Type 2 diabetes mellitus with diabetic neuropathy, unspecified; W18.39XA Other fall on same level, initial encounter; Z90.49 Acquired absence of other specified parts of digestive tract; Z79.899 Other long term (current) drug therapy; Z79.84 Long term (current) use of oral hypoglycemic drugs; Z87.01 Personal history of pneumonia (recurrent); Z68.25 Body mass index [BMI] 25.0-25.9, adult; Y93.89 Activity, other specified; Y92.89 Other specified places as the place of occurrence of the external cause; Y99.8 Other external cause status
CPT/HCPCS: 10195; 50010; 50101; 50133; 50386; 51412; 51538; 51817; 52145; 52146; 56525; 57092; 62110; 62900; 65020; 65040; 70005